=== PATIENT | female | born 1945 | race Caucasian/White ===

== ENCOUNTER 2020-03-22 12:46 | Outpatient (CLI) | payer MEDICARE, SELFPAY | END 2020-03-22 12:47 | disposition home or self-care (01) | LOC: ANHAUDIO 12:50 | DX: H93.13 Tinnitus, bilateral (principal) | CPT/HCPCS: 92557; 92567 ==

== ENCOUNTER 2020-06-27 13:45 | Emergency (ER) | payer MEDICARE, SELFPAY ==
--- NOTE | ~2020-06-27 | CT_ITS ---
EXAMINATION: CT cervical spine wo [facility] EXAM DATE: 06/27/2020 15:04 INDICATION: Radiating cervical pain. TECHNIQUE: Spiral CT of the cervical spine was performed without contrast. Axial images were reviewe d. Coronal and sagittal reformatted images were also reviewed. The dose-length product (DLP) for thi s examination was 354.69 mGy-cm. The exposure was tailored according to patient size (auto mA exposu re control), and iterative reconstruction (ASIR) was used as additional dose reduction technique. ere is no prior study for comparison. FINDINGS: There is moderate loss of the C6-7 disc height, mild to moderate at C4-5 and C7-T1. There i s 2 mm anterolisthesis C7 on T1 and T1 on T2. There are no acute fractures identified. The odontoid p rocess is intact. The lateral masses of C1 line up with C2. Prevertebral soft tissue and pre-dens sp cathleen are within normal limits. Paraspinal soft tissue is unremarkable. Goiter. Level by level evaluation: C2-C3: Disc does not extend beyond the endplate margin. Uncovertebral joint arthropathy: Mild bilateral. Facet joint arthropathy: Moderate left, mild right. Neural foraminal stenosis: Mild left. Central canal stenosis: No stenosis. C3-C4: Disc does not extend beyond the endplate margin. Uncovertebral joint arthropathy: Mild bilateral. Facet joint arthropathy: Severe right, mild left. Neural foraminal stenosis: Moderate to severe right, mild to moderate left. Central canal stenosis: No stenosis. C4-C5: There is a mild diffuse disc bulge. Uncovertebral joint arthropathy: Mild to moderate left, mild right. Facet joint arthropathy: Severe left, moderate right. Neural foraminal stenosis: Moderate bilateral. Central canal stenosis: Mild. C5-C6: There is a mild diffuse disc bulge. Uncovertebral joint arthropathy: Mild to moderate bilateral. Facet joint arthropathy: Severe right, mild to moderate left. Neural foraminal stenosis: Moderate to severe right, moderate left. Central canal stenosis: Mild. C6-C7: There is a mild diffuse disc bulge. Uncovertebral joint arthropathy: Mild to moderate bilateral. Facet joint arthropathy: Moderate left, mild to moderate right. Neural foraminal stenosis: Moderate to severe left. Central canal stenosis: Mild. C7-T1: Disc does not extend beyond the endplate margin. Uncovertebral joint arthropathy: Mild bilateral. Facet joint arthropathy: Moderate bilateral. Neural foraminal stenosis: Moderate left, mild to moderate right. Central canal stenosis: No stenosis. IMPRESSION: 1. Some advanced cervical arthropathy causing significant neural foraminal stenosis. 2. No acute findings. Reviewed, dictated and finalized at location B. IMPRESSION: 1. Some advanced cervical arthropathy causing significant neural foraminal wandy nosis. 2. No acute findings.
[2020-06-27 14:15] VITALS: BP 146/78; PULSE 107; RESP 18; TEMP 36.9; O2SAT 98
--- NOTE | 2020-06-27 15:52 | ED.NECK ---
HPI - Neck Pain/Injury General Chief Complaint: Neck Pain/Injury <Jaki Hutchinson PA-C - Last Filed: 06/27/20 18:04> Stated Complaint: shooting pain in my head and neck <Jaki Hutchinson PA-C - Last Filed: 06/27/20 18:04> Time Seen by Provider: 06/27/20 14:28 <LEATHA Johnson Last Filed: 06/27/20 18:04> Source: patient <Jaki Hutchinson PA-C - Last Filed: 06/27/20 18:04> Mode of arrival: ambulatory <LEATHA Johnson Last Filed: 06/27/20 18:04> Limitations: no limitations <Jaki Hutchinson PA-C - Last Filed: 06/27/20 18:04> History of Present Illness HPI Narrative: Patient presents with chief complaint of worsening cervical discomfort that began last and worsening after doing yard work. Patient states that she was seen at the urgent care on 06-23-2020 in had x-ray performed. She reports that she was prescribed tramadol in cyclobenzaprine which have not remitted her symptoms. Patient states that she is having trouble getting in with her primary care due to COVID. She reports she has radiation from her cervical spine both up and down. 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 Patient denies known direct impact to her neck. Patient states that she also has seen a chiropractor without remittance in her symptoms. Patient denies loss of range of motion in her lower extremities or other back pains. Patient denies any other complaints or concerns. Patient denies fever, chills, meningitis-like neck discomfort, headache or other accompanying symptoms. <Jaki Hutchinson PA-C - Last Filed: 06/27/20 18:04> Related Data Allergies/Adverse Reactions: Allergies Allergy/AdvReac Type Severity Reaction Status Date / Time Sulfa (Sulfonamide Allergy Rash Verified 06/27/20 14:20 Antibiotics) <Jaki Hutchinson PA-C - Last Filed: 06/27/20 18:04> Review of Systems Review of Systems: Narrative: CONSTITUTIONAL: Denies fever, chills, or sweats. EYES: Denies visual changes, redness, or discharge. ENT: Denies rhinorrhea, congestion, sore throat, or otalgia. CARDIOVASCULAR: Denies chest pain, palpitations, or edema. RESPIRATORY: Denies cough or dyspnea. GASTROINTESTINAL: Denies abdominal pain, nausea, vomiting, or diarrhea. GENITOURINARY: Denies dysuria or hematuria. SKIN: Denies rash or itching. MUSCULOSKELETAL: Reports neck pain denies back pain, myalgia, or joint pain NEUROLOGIC: Denies headache, numbness, dizziness, or weakness. PSYCHIATRIC: Denies anxiety or depression. <Jaki Hutchinson PA-C - Last Filed: 06/27/20 18:04> [facility] Social History Social History: Social History Gender identity (if verbalized by the patient): Female <Jaki Hutchinson PA-C - Last Filed: 06/27/20 18:04> Exam Narrative: Exam Narrative: GENERAL: Well-appearing, well-nourished. HEAD: Normocephalic, atraumatic. EYES: PERRLA and EOMI. ENT: Nares clear, no rhinorrhea or epistaxis. Mucous membranes moist. Oropharynx without tonsillar hypertrophy exudate or other lesions. Bilateral TMs pearly du nonbulging NECK: Supple. No adenopathy or masses palpated. Diffuse pain with palpation of cervical spine. Pain with all ROM especially rotation. No meningismus rigidity. CHEST: Clear to auscultation. No respiratory distress. No wheezes rales or rhonchi HEART: Regular rate and rhythm. Normal peripheral pulses. EXTREMITIES: No acute changes in ROM. No edema. Cell Lead strength and ROM intact and strong to upper an lower. SKIN: Warm, dry, no rash. NEURO: No focal deficits. Alert and oriented x3. PSYCH: Normal mood and affect. <Jaki Hutchinson PA-C - Last Filed: 06/27/20 18:04> Course Vital Signs Vital signs: Vital Signs Temperature 98.5 F 06/27/20 14:15 Pulse Rate 107 H 06/27/20 14:15 Respiratory Rate 18 06/27/20 14:15 Blood Pressure 146/78 H 06/27/20 14:15 Pulse Oximetry 98 06/27/20 14:15 Temperature 98.5 F 06/27/20 14:15 Pulse Rate
[2020-06-27] MEDS: KETOROLAC (*BKC) 60 MG/2 ML VIAL 30 MG IM (15:55)
== END 2020-06-27 16:13 | disposition home or self-care (01) ==
PROVIDERS: Emergency Provider General Practice; PCP Family Medicine
DX: M48.02 Spinal stenosis, cervical region (principal)
CPT/HCPCS: 72125; 96372; 99284; J1885

== ENCOUNTER 2020-10-06 12:18 | Emergency (ER) | payer MEDICARE, SELFPAY ==
[2020-10-06 12:27] VITALS: BP 150/89; PULSE 122; RESP 17; TEMP 36.6; O2SAT 98
--- NOTE | 2020-10-06 12:42 | ED.LOWEXIN ---
HPI - Extremity Injury (Lower) General Chief Complaint: Extremity Injury, Lower Stated Complaint: right leg injury Time Seen by Provider: 10/06/20 12:32 Source: patient Mode of arrival: ambulatory Limitations: no limitations History of Present Illness HPI Narrative: A 75-year-old lady comes into the emergency department with complaints of a right lower extremity injury. She notes that she was at home, set a trash can lid down on the floor, went to go turn around and did not see it. She states she excellently stepped on the trash can lid which slid out in front of her taking her right leg with it. She states she quickly fell to the floor. Patient was able to ambulate in hearing but states that she does not think she broke anything. She notes all of her pain is in the right hamstring muscles. She denies any numbness or tingling in the distal extremities. Related Data Allergies Allergy/AdvReac Type Severity Reaction Status Date / Time Sulfa (Sulfonamide Allergy Rash Verified 10/06/20 12:34 Antibiotics) Review of Systems Review of Systems: Narrative: CONSTITUTIONAL: Denies fever, chills, or sweats. EYES: Denies visual changes, redness, or discharge. ENT: Denies rhinorrhea, congestion, sore throat, or otalgia. CARDIOVASCULAR: Denies chest pain, palpitations, or edema. RESPIRATORY: Denies cough or dyspnea. GASTROINTESTINAL: Denies abdominal pain, nausea, vomiting, or diarrhea. GENITOURINARY: Denies dysuria or hematuria. SKIN: Denies rash or itching. MUSCULOSKELETAL: Denies back pain, joint pain, or myalgia. Endorses right hamstring pain and tenderness with movement NEUROLOGIC: Denies headache, numbness, dizziness, or weakness. PSYCHIATRIC: Denies anxiety or depression. [facility] Social History Social History Gender identity (if verbalized by the patient): Female Exam Narrative: Exam Narrative: GENERAL: Well-appearing, well-nourished, and in no acute distress. HEAD: Normocephalic, atraumatic. EYES: PERRLA and EOMI. ENT: Nares clear, no rhinorrhea or epistaxis. Mucous membranes moist. Oropharynx without tonsillar hypertrophy exudate or other lesions. Bilateral TMs pearly du nonbulging NECK: Supple. No adenopathy or masses. No carotid bruits or JVD CHEST: Clear to auscultation. No respiratory distress. No wheezes rales or rhonchi HEART: Regular rate and rhythm. No murmur heard. Normal peripheral pulses. ABDOMEN: Soft, nontender, nondistended, normal active bowel sounds. EXTREMITIES: Normal range of motion. No edema. +2 dorsalis pedis pulses bilaterally, +2 posterior tibial pulse on the right, +1 posterior tibial pulse on the left. Tenderness to palpation along the right hamstring muscles. SKIN: Warm, dry, no rash. NEURO: No focal deficits. Alert and oriented x3. PSYCH: Normal mood and affect. Course Course Emergency Course: Patient to receive symptomatic medications. At this time I do not believe that she broke any bones and x-ray imaging is not warranted at this time. Explained my rationale to the patient and her significant other. They both agree. We will plan for discharge with symptomatic medications. I did discuss treatment plans at length with them including alternating heat and ice and perhaps using a topical agent like icy hot. Vital Signs Vital signs: Vital Signs Temperature 36.6 C 10/06/20 12:27 Pulse Rate 122 H 10/06/20 12:27 Respiratory Rate 17 10/06/20 12:27 Blood Pressure 150/89 H 10/06/20 12:27 Pulse Oximetry 98 10/06/20 12:27 Temperature 36.6 C 10/06/20 12:27 Pulse Rate 122 H 10/06/20 12:27 Respiratory Rate 17 10/06/20 12:27 Blood Pressure 150/89 H 10/06/20 12:27 Pulse Oximetry 98 10/06/20 12:27 MDM - Extremity Injury (Lower) MDM Narrative Medical decision making narrative: In brief this is a 75-year-old female who came into the emergency department after an injury to her right lower extremity. Based on history
[2020-10-06] MEDS: KETOROLAC (*BKC) 60 MG/2 ML VIAL IM (13:24)
[2020-10-06] MEDS: HYDROcodone/acetaminophen (*CRX) 5-325 MG TABLET 1 TAB PO (13:24)
== END 2020-10-06 13:39 | disposition home or self-care (01) ==
PROVIDERS: Emergency Provider Emergency Medicine; PCP Family Medicine
DX: S76.311A Strain of muscle, fascia and tendon of the posterior muscle group at thigh level, right thigh, initial encounter (principal); W18.09XA Striking against other object with subsequent fall, initial encounter
CPT/HCPCS: 96372; 99283; A9270; J1885

== ENCOUNTER 2021-04-03 14:02 | Outpatient (CLI) | payer MEDICARE, SELFPAY ==
--- NOTE | ~2021-04-03 | XR_ITS ---
XR lumbar spine 2-3V DATE: 04/03/2021 14:43 INDICATION: Low back pain and left hip pain for 20 years TECHNIQUE: AP, lateral, coned lateral lumbosacral views COMPARISON: lumbar spine FINDINGS: There is grade 1 anterolisthesis at L4-5 due to degenerative change at the apophyseal joint s. Degenerative changes apophyseal joints is evident particular at L4-5 and L5-S1. Moderate degenerative disc disease at L4-5 and mild degenerative disc disease at the remaining lumbar interspaces. No fracture or bone destruction. The included lower thoracic and lumbar pedicles are intact. The sacr oiliac joints appear normal. IMPRESSION: Grade 1 anterolisthesis at L4-5 due to degenerative change at the apophyseal joints Mildly prominent degenerative disc disease at L4-5, increased since 10/15/2015 Mild degenerative disease at the remaining lumbar interspaces Reviewed, dictated and finalized at location B. IMPRESSION: Grade 1 anterolisthesis at L4-5 due to degenerative change at the a pophyseal joints Mildly prominent degenerative disc disease at L4-5, increased since 10/15/2015 Mild degenerative disease at the remaining lumbar interspaces
--- NOTE | ~2021-04-03 | XR_ITS ---
EXAMINATION: XR hip LT min 2V DATE: 04/03/2021 14:43 INDICATION: Left hip pain. TECHNIQUE: 2 views of left hip were obtained. COMPARISON: None. FINDINGS: Bone alignment is normal. No fracture. There is mild left hip osteoarthritis. IMPRESSION: 1. Mild left hip osteoarthritis. 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
[2021-04-03 14:21] LABS: Basophils Percent Auto 0.9 % (0.0-1.0); Eosinophils Percent Auto 2.7 % (1.0-6.0); Hemoglobin 14.6 g/dL (11.7-13.8); Immature Granulocyte Absolute 0.03 K/mm3 (0.00-0.00); Immature Granulocyte Percent A 0.3 % (0.0-0.0); Lymphocytes Percent Auto 19.1 % (18.0-42.0); Mean Corpuscular Hemoglobin 29.1 pg (27.0-31.0); Mean Corpuscular Volume 85.8 fL (78.0-102.0); Mean Platelet Volume 9.6 fl (9.2-11.8); Monocytes Absolute Auto 0.74 K/mm3 (0.10-0.90); Monocytes Percent Auto 6.7 % (2.0-11.0); Neutrophils Absolute Auto 7.7 K/mm3 (1.7-7.2); Neutrophils Percent Auto 70.3 % (50.0-70.0); Platelet Count Result 477 K/mm3 (150-420); Red Blood Count 5.01 M/mm3 (4.20-5.40); Red Cell Distribution Width 12.3 % (11.6-14.4)
[2021-04-03 14:22] LABS: Add Urine Microscopic? YES; Appearance Urine Clear (Clear); Bilirubin Urine Negative (Negative); Blood Urine Negative (Negative); Color Urine Light Yellow (Yellow); Glucose Urine UA Negative (Negative); Ketones Urine Negative (Negative); Leukocyte Esterase Ur 2+ (Negative); Nitrate Urine Negative (Negative); Protein Urine Negative (Negative); Urobilinogen Urine 0.2 mg/dL (0.2-1.0)
[2021-04-03 14:26] LABS: Bacteria Urine 1+ /hpf; RBC Urine None seen /hpf (0-2); Squamous Epithelial Cell Urine Few /hpf (Few)
[2021-04-03 14:56] LABS: Creatinine Urine 162.52 mg/dL (40-278); MALB Creatinine Ratio 7.9 mg/g (0-30); Microalbumin Urine Random < 13.0 mg/L
[2021-04-03 14:58] LABS: Hemoglobin A1C 6.4 % (<5.7)
[2021-04-03 15:20] LABS: Alanine Aminotransferase 26 U/L (14-59); Albumin Level 4.3 g/dL (3.4-5.0); Alkaline Phosphatase 80 U/L (46-116); Anion Gap 12 mmol/L (8-16); Aspartate Amino Transferase 18 U/L (15-37); Bilirubin,Total 0.3 mg/dL (0.00-1.00); Blood Urea Nitrogen 26 mg/dL (7-18); Calcium 10.8 mg/dL (8.5-10.1); Carbon Dioxide 28 mmol/L (21-32); Chloride 98 mmol/L (98-108); Cholesterol 176 mg/dL (0-200); Estimated Glomerular Filt Rate 33; Glucose 103 mg/dL (70-99); HDL Direct 53 mg/dL (40-60); LDL Cholesterol Calculated 104 mg/dL (<130); Osmolality Calculated 290 mOsm/kg (285-295); Potassium 4.6 mmol/L (3.5-5.1); Sodium 138 mmol/L (136-145); Thyroid Stimulating Hormone 2.47 uIU/mL (0.36-3.74); Total Protein 7.3 g/dL (6.4-8.2); Triglycerides 96 mg/dL (0-150)
== END 2021-04-03 14:03 | disposition home or self-care (01) ==
LOC: CHSLAB 14:04
PROVIDERS: PCP Internal Medicine; Visit Provider Internal Medicine
DX: E11.9 Type 2 diabetes mellitus without complications (principal); I10 Essential (primary) hypertension; M54.17 Radiculopathy, lumbosacral region
CPT/HCPCS: 36415; 72100; 73502; 80053; 80061; 81001; 82043; 83036; 84443; 85025

== ENCOUNTER 2021-04-10 08:08 | Outpatient (CLI) | payer MEDICARE, SELFPAY ==
--- NOTE | ~2021-04-10 | MR_ITS ---
EXAMINATION: MR lumbar spine wo [facility] EXAM DATE: 04/10/2021 10:04 INDICATION: Low back pain into left leg with numbness in the foot. TECHNIQUE: Multi-sequential, multiplanar MR images of the lumbar spine were obtained without contrast . Sagittal T1, T2, T2 fat saturation images. Axial T2 weighted images. Comparison is made to prior examination from 04/23/2019. FINDINGS: There is 4 mm anterolisthesis L4 on L5, 2 mm anterolisthesis T12 on L1. Mild to moderate di sc disease L4-5, mild at the other lumbar levels. The conus medullaris terminates at the T12-L1 level and has normal signal intensity and morphology. There are no suspicious marrow signal abnormalities . Paraspinal soft tissue is unremarkable. Level by level evaluation: T12-L1: There is a mild diffuse disc bulge. Facet arthropathy: Mild to moderate. Neural foraminal stenosis: No stenosis. Central canal stenosis: No stenosis. L1-L2: There is a mild diffuse disc bulge. Facet arthropathy: Mild to moderate. Neural foraminal stenosis: No stenosis. Central canal stenosis: No stenosis. L2-L3: There is a mild diffuse disc bulge. Facet arthropathy: Mild to moderate. Neural foraminal stenosis: Mild bilateral. Central canal stenosis: Mild. L3-L4: There is a mild to moderate diffuse disc bulge. Facet arthropathy: Moderate. Neural foraminal stenosis: Mild to moderate left, mild right. Central canal stenosis: Mild to moderate. L4-L5: There is a moderate diffuse disc bulge. Facet arthropathy: Moderate to severe . Ligamentum flavum enlargement. Neural foraminal stenosis: Mild to moderate bilateral. Central canal stenosis: Moderate. L5-S1: There is a moderate diffuse disc bulge. Facet arthropathy: Moderate. Neural foraminal stenosis: Mild bilateral. Central canal stenosis: Moderate, less than level above. Compared to 2019 exam, mild progression in the disc disease. Amount of stenosis does not appear signi ficantly changed. IMPRESSION: 1. L4-5 grade 1 anterolisthesis, moderate central canal stenosis. 2. Less spondylosis other levels. 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
[2021-04-10 09:15] LABS: Phosphorus 3.8 mg/dL (2.6-4.7)
[2021-04-13 04:55] LABS: Ionized Calcium 5.3 mg/dL (4.8-5.6)
[2021-04-13 11:31] LABS: Parathyroid Intact 31 pg/mL (14-64)
[2021-04-14 05:19] LABS: Albumin 4.3 g/dL (3.8-4.8); Alpha 1 Globulin 0.3 g/dL (0.2-0.3); Alpha 2 Globulin 0.9 g/dL (0.5-0.9); Beta 1 Globulin 0.5 g/dL (0.4-0.6); Protein, Total 7.3 g/dL (6.1-8.1)
== END 2021-04-10 08:09 | disposition home or self-care (01) ==
LOC: CHSIMG 08:10
PROVIDERS: PCP Internal Medicine; Visit Provider Internal Medicine
DX: M54.5 Low back pain (principal); E83.51 Hypocalcemia
CPT/HCPCS: 36415; 72148; 82330; 83970; 84100; 84155; 84165; 86334

== ENCOUNTER 2021-06-25 11:20 | Outpatient (CLI) | payer MEDICARE, SELFPAY ==
[2021-06-25 12:47] LABS: Alanine Aminotransferase 20 U/L (4-35); Albumin Level 4.9 g/dL (3.5-5.1); Alkaline Phosphatase 79 U/L (38-126); Anion Gap 9 mmol/L (8-16); Aspartate Amino Transferase 42 U/L (14-36); Bilirubin,Total 0.3 mg/dL (0.2-1.3); Blood Urea Nitrogen 31 mg/dL (7-17); Calcium 10.1 mg/dL (8.4-10.2); Carbon Dioxide 28 mmol/L (22-30); Chloride 96 mmol/L (98-107); Estimated Glomerular Filt Rate 40; Glucose 121 mg/dL (65-110); Potassium 4.3 mmol/L (3.4-5.0); Sodium 133 mmol/L (137-145)
[2021-06-25 18:44] LABS: Hemoglobin A1C 6.5 % (<5.7)
== END 2021-06-25 11:21 | disposition home or self-care (01) ==
PROVIDERS: PCP Internal Medicine; Visit Provider Internal Medicine
DX: E11.9 Type 2 diabetes mellitus without complications (principal); I10 Essential (primary) hypertension
CPT/HCPCS: 36415; 80053; 83036

== ENCOUNTER 2021-09-09 11:26 | Outpatient (CLI) | payer MEDICARE, SELFPAY ==
--- NOTE | ~2021-09-09 | XR_ITS ---
EXAMINATION: XR abdomen obstructive series DATE: 09/09/2021 11:49 INDICATION: Diarrhea. Abdominal pain. TECHNIQUE: Frontal supine and upright views of the abdomen were obtained. COMPARISON: None. FINDINGS: Small to moderate amount of gas and fluid scattered throughout the normal caliber colon consistent wi th given history of diarrhea. No dilated gas-filled loops of bowel to suggest obstruction. No free in traperitoneal gas. 2 cm rim calcified gallstone in the right upper quadrant. Postoperative changes wi th suture line in the right lower quadrant. Small calcified nodule at the dome of the liver consisten t with old granulomatous disease. Paracardial fat pad at the lateral left lung base. Bilateral breast implants. IMPRESSION: 1. No free intraperitoneal gas or dilated gas-filled loops of bowel to suggest obstruction. 2. Cholelithiasis. Reviewed, dictated and finalized at [facility]. 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
[2021-09-09 11:40] LABS: Basophils Absolute Auto 0.13 K/mm3 (0.00-0.10); Eosinophils Absolute Auto 0.54 K/mm3 (0.02-0.50); Eosinophils Percent Auto 4.3 % (1.0-6.0); Hematocrit 45.1 % (35.0-42.0); Hemoglobin 14.7 g/dL (11.7-13.8); Immature Granulocyte Absolute 0.08 K/mm3 (0.00-0.00); Immature Granulocyte Percent A 0.6 % (0.0-0.0); Lymphocytes Absolute Auto 1.65 K/mm3 (1.10-4.50); Mean Corpuscular HGB Conc 32.6 g/dL (32.0-36.0); Mean Corpuscular Hemoglobin 29.3 pg (27.0-31.0); Mean Platelet Volume 9.6 fl (9.2-11.8); Monocytes Absolute Auto 1.08 K/mm3 (0.10-0.90); Monocytes Percent Auto 8.5 % (2.0-11.0); Neutrophils Absolute Auto 9.2 K/mm3 (1.7-7.2); Neutrophils Percent Auto 72.6 % (50.0-70.0); Platelet Count Result 420 K/mm3 (150-420); Red Blood Count 5.01 M/mm3 (4.20-5.40); Red Cell Distribution Width 13.2 % (11.6-14.4); White Blood Count 12.7 K/mm3 (4.8-10.8)
[2021-09-09 12:47] LABS: Alanine Aminotransferase 53 U/L (14-59); Albumin Level 3.9 g/dL (3.4-5.0); Alkaline Phosphatase 90 U/L (46-116); Amylase 47 U/L (25-115); Anion Gap 10 mmol/L (8-16); Aspartate Amino Transferase 34 U/L (15-37); Bilirubin,Total 0.5 mg/dL (0.00-1.00); Blood Urea Nitrogen 18 mg/dL (7-18); Calcium 10.1 mg/dL (8.5-10.1); Carbon Dioxide 29 mmol/L (21-32); Chloride 99 mmol/L (98-108); Estimated Glomerular Filt Rate 34; Glucose 119 mg/dL (70-99); Lipase 104 U/L (73-393); Osmolality Calculated 288 mOsm/kg (285-295); Potassium 4.3 mmol/L (3.5-5.1); Sodium 138 mmol/L (136-145); Total Protein 7.2 g/dL (6.4-8.2)
== END 2021-09-09 11:27 | disposition home or self-care (01) ==
LOC: CHSLAB 11:28
PROVIDERS: PCP Internal Medicine; Visit Provider Internal Medicine
DX: R19.7 Diarrhea, unspecified (principal); R10.9 Unspecified abdominal pain
CPT/HCPCS: 36415; 74019; 80053; 82150; 83690; 85025

== ENCOUNTER → 2021-10-10 11:07 | Outpatient (CLI) | payer MEDICARE, SELFPAY ==
--- NOTE | ~2021-10-10 | CT_ITS ---
EXAMINATION: CT abdomen pelvis w con DATE: 10/10/2021 11:31 INDICATION: Diarrhea TECHNIQUE: Computed tomography (CT) of the abdomen and pelvis was performed with 100 cc Omnipaque 350 intravenous contrast. Automated exposure control and iterative reconstruction technique were employe d. Exam dose: 729.56 mGy-cm total exam DLP. COMPARISON: 09/09/2021 obstructive series. FINDINGS: The lung bases are clear of infiltrate or consolidation. Normal heart size. No pericardial or pleural effusion. Bilateral breast implants, the right implant apparently for postmastectomy breas t reconstruction. Concentrically calcified 1.9 cm gallstone. No gallbladder wall thickening or pericholecystic fluid or fat stranding. No bile duct or pancreatic duct dilatation. No hepatic, splenic, pancreatic or adrenal space-occupying mass lesion. Scattered bilateral renal cysts, largest measuring 9 mm in the lower pole of the right kidney. No evidence of appendicitis. Diverticulosis of the left and and to lesser extent right colon; no CT e vidence of diverticulitis. No bowel obstruction, bowel wall thickening, pneumatosis or intraperitonea l free air. There is atherosclerotic calcification but no aneurysm of the abdominal aorta. No intraperitoneal or retroperitoneal or pelvic mass lesion or adenopathy or ascites. The urinary bladder is unremarkable. Status post hysterectomy. Small fat-containing umbilical hernia. Prominent degenerative disc disease at T7-8 and T9-10 are moderately prominent degenerative disc dise ase at T8-9. There is degenerative change of the lumbar apophyseal joints with associated grade 1 anterolisthesis at L4-5. No suspicious osteolytic or osteoblastic lesions are noted. IMPRESSION: Cholelithiasis Bilateral renal cysts Diverticulosis of the colon; no CT evidence of diverticulitis No evidence of appendicitis Status post right mastectomy and implant reconstruction; left breast augmentation mammoplasty Reviewed, dictated and finalized at [facility]. 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
[2021-10-10 11:22] LABS: Estimated Glomerular Filt Rate 43
== END ==
PROVIDERS: Visit Provider Surgery
DX: R19.7 Diarrhea, unspecified (principal); K80.20 Calculus of gallbladder without cholecystitis without obstruction; K76.89 Other specified diseases of liver; Z90.11 Acquired absence of right breast and nipple
CPT/HCPCS: 74177; Q9967

== ENCOUNTER 2021-10-31 00:12 | Day surgery (SDC) | payer MEDICARE, SELFPAY ==
[2021-10-21 08:31] VITALS: BMI 28.2
[2021-10-31 06:55] VITALS: BP 144/83; PULSE 91; RESP 20; TEMP 36.6; O2SAT 97; BMI 28.1
[2021-10-31] MEDS: LACTATED RINGERS 1,000 ML 150 ML IV CONT (07:06)
--- NOTE | 2021-10-31 07:46 | P.PNAN_ITS ---
Anes - Initial Pre Proc Eval Procedure: Operation Date: 10/31/21 08:00 Proposed Procedures p Colonoscopy - Gildardo Mcdowell DO Date/Time: 10/31/21 07:46 Surgeon: Gildardo Mcdowell DO Pre Op Diagnosis: diarrhea Patient Data Age: 76 Gender: F Height: 1.65 m Weight: 76.7 kg Last Vital Signs Temp 97.8 F 10/31/21 06:55 Pulse 91 10/31/21 06:55 Resp 20 10/31/21 06:55 BP 144/83 H 10/31/21 06:55 Pulse Ox 97 10/31/21 06:55 Allergies Allergy/AdvReac Type Severity Reaction Status Date / Time Sulfa (Sulfonamide Allergy Intermediate Rash Verified 10/31/21 06:54 Antibiotics) Home Medications Medication Instructions Recorded Confirmed Type amlodipine 10 mg tablet 10 mg PO DAILY 10/02/21 10/21/21 History multivitamin 1 tablet PO DAILY 10/02/21 10/21/21 History omega 4-uvf-scf-fish oil 1,000 mg 1 cap PO DAILY 10/02/21 10/21/21 History (120 mg-180 mg) capsule Patient hx anesthesia problems: none Family hx anesthesia problems: none Results Review: All pre-operative results and documents have been reviewed as part of the pre-operative evaluation. COUNT INCLUDES THE [facility] Past Medical History Medical History Hypertension Surgical History Surgical History H/O breast reconstruction H/O: hysterectomy History of mastectomy right breast Family History Family History Mother Cerebrovascular accident Sibling Breast cancer Other Diabetes mellitus Social History Social History Smoking status: Never smoker Tobacco type: cigarettes Alcohol intake: never Substance use: never Substance use type: does not use Living arrangements: with family Gender identity (if verbalized by the patient): Female Spiritual care concerns: No Anes - Eval Final PreProcedure Day of Procedure 10/31/21 07:46 Patient weight: overweight Heart: regular rate and rhythm Lungs: clear to auscultation Airway: Mallampati scale class II Neurological: alert and oriented Last oral intake: >/= 8 hours ASA classification: II Emergent: no Anesthetic plan: proceed Anesthesia type and monitoring: general GIVS and standard monitoring Results Review: All pre-operative results and documents have been reviewed as part of the pre-operative evaluation. Informed Consent: The patient's anesthetic plan and its attendant risks and benefits were discussed with the patient/family/POA. Questions were solicited and answers provided to the satisfaction of the patient/family/POA.
--- NOTE | 2021-10-31 07:58 | WPDHPUPDATE1 ---
History and Physical Update Update Date/Time: 10/31/21 07:58 History and Physical has been reviewed, including an updated exam of the patient. There are NO changes in the patient's condition. Risks, benefits, and alternatives have been discussed and questions answered. Patient agrees to proceed with procedure.
[2021-10-31 08:29] VITALS: BP 106/61; PULSE 62; RESP 12; O2SAT 92
[2021-10-31 08:39] VITALS: BP 121/95; PULSE 83; RESP 18; O2SAT 92
[2021-10-31 08:51] VITALS: BP 136/95; PULSE 60; RESP 17; O2SAT 93
== END 2021-10-31 09:15 | disposition home or self-care (01) ==
PROVIDERS: PCP Internal Medicine; Visit Provider Surgery
PROC: 0DJD8ZZ Inspection of Lower Intestinal Tract, Via Natural or Artificial Opening Endoscopic (ICD-10-PCS; CPT 45378; principal; 2021-10-31 08:00)
DX: Z12.11 Encounter for screening for malignant neoplasm of colon (principal); R19.7 Diarrhea, unspecified; K57.30 Diverticulosis of large intestine without perforation or abscess without bleeding; K63.89 Other specified diseases of intestine; Z53.8 Procedure and treatment not carried out for other reasons; I10 Essential (primary) hypertension
CPT/HCPCS: G0121; J2704; J7120

== ENCOUNTER 2022-04-18 14:26 | Outpatient (CLI) | payer MEDICARE, SELFPAY ==
--- NOTE | ~2022-04-18 | US_ITS ---
EXAMINATION: US venous doppler [facility] DATE: 04/18/2022 16:12 INDICATION: Bilateral lower limb swelling TECHNIQUE: Mayer scale images without and with compression and Doppler images of the bilateral lower e xtremity veins were obtained. COMPARISON: None FINDINGS: The right common femoral vein, profunda femoral vein, femoral vein, popliteal vein, peroneal trunk, p osterior tibial veins, and greater saphenous vein are patent. The left common femoral vein, profunda femoral vein, femoral vein, popliteal vein, peroneal trunk, po sterior tibial veins, and greater saphenous vein are patent. IMPRESSION: 1. Patent bilateral lower extremity veins. No evidence of deep venous thrombosis. Reviewed, dictated and finalized at location L. IMPRESSION: 1. Patent bilateral lower extremity veins. No evidence of deep venous thrombosi s.
[2022-04-18 14:44] LABS: Basophils Absolute Auto 0.11 K/mm3 (0.00-0.10); Basophils Percent Auto 1.2 % (0.0-1.0); Eosinophils Absolute Auto 0.38 K/mm3 (0.02-0.50); Eosinophils Percent Auto 4.2 % (1.0-6.0); Hematocrit 43.5 % (35.0-42.0); Hemoglobin 14.3 g/dL (11.7-13.8); Immature Granulocyte Absolute 0.02 K/mm3 (0.00-0.00); Immature Granulocyte Percent A 0.2 % (0.0-0.0); Lymphocytes Absolute Auto 1.95 K/mm3 (1.10-4.50); Lymphocytes Percent Auto 21.6 % (18.0-42.0); Mean Corpuscular HGB Conc 32.9 g/dL (32.0-36.0); Mean Corpuscular Hemoglobin 28.8 pg (27.0-31.0); Mean Corpuscular Volume 87.5 fL (78.0-102.0); Monocytes Absolute Auto 0.66 K/mm3 (0.10-0.90); Monocytes Percent Auto 7.3 % (2.0-11.0); Neutrophils Absolute Auto 5.9 K/mm3 (1.7-7.2); Neutrophils Percent Auto 65.5 % (50.0-70.0); Platelet Count Result 378 K/mm3 (150-420); Red Blood Count 4.97 M/mm3 (4.20-5.40); Red Cell Distribution Width 13.3 % (11.6-14.4)
[2022-04-18 14:47] LABS: Add Urine Microscopic? YES; Appearance Urine Clear (Clear); Bilirubin Urine Negative (Negative); Blood Urine Negative (Negative); Color Urine Light Yellow (Yellow); Glucose Urine UA Negative (Negative); Ketones Urine Negative (Negative); Leukocyte Esterase Ur 1+ (Negative); Nitrate Urine Negative (Negative); Protein Urine Negative (Negative); Specific Grav Ur <= 1.005 (1.010-1.020); Urobilinogen Urine 0.2 mg/dL (0.2-1.0); pH Urine 5.5 (5.0-8.0)
[2022-04-18 14:52] LABS: RBC Urine 0-2 /hpf (0-2); Squamous Epithelial Cell Urine Few /hpf (Few)
[2022-04-18 14:53] LABS: Bacteria Urine Trace /hpf
[2022-04-18 15:02] LABS: D Dimer 0.91 mg/L (0.19-0.50)
[2022-04-18 15:11] LABS: Alanine Aminotransferase 26 U/L (14-59); Albumin Level 4.1 g/dL (3.4-5.0); Alkaline Phosphatase 135 U/L (46-116); Anion Gap 11 mmol/L (8-16); Aspartate Amino Transferase 22 U/L (15-37); Bilirubin,Total 0.4 mg/dL (0.00-1.00); Blood Urea Nitrogen 13 mg/dL (7-18); Calcium 9.5 mg/dL (8.5-10.1); Carbon Dioxide 28 mmol/L (21-32); Chloride 103 mmol/L (98-108); Estimated Glomerular Filt Rate 41; Free T3 2.59 pg/mL (2.18-3.98); Glucose 138 mg/dL (70-99); NT Pro B Type Natriuretic Pept 48 pg/mL (0-450); Osmolality Calculated 296 mOsm/kg (285-295); Potassium 3.5 mmol/L (3.5-5.1); Sodium 142 mmol/L (136-145); Thyroid Stimulating Hormone 2.84 uIU/mL (0.36-3.74)
== END 2022-04-18 14:27 | disposition home or self-care (01) ==
PROVIDERS: PCP Internal Medicine; Visit Provider Internal Medicine
DX: R60.9 Edema, unspecified (principal); R79.1 Abnormal coagulation profile; I10 Essential (primary) hypertension; R06.00 Dyspnea, unspecified
CPT/HCPCS: 36415; 80053; 81001; 83880; 84439; 84443; 84481; 85025; 85380; 93970

== ENCOUNTER 2022-05-05 08:21 | Outpatient (CLI) | payer MEDICARE, SELFPAY ==
[2022-05-05 09:01] LABS: Alanine Aminotransferase 32 U/L (14-59); Alkaline Phosphatase 131 U/L (46-116); Anion Gap 9 mmol/L (8-16); Aspartate Amino Transferase 16 U/L (15-37); Bilirubin,Total 0.6 mg/dL (0.00-1.00); Blood Urea Nitrogen 28 mg/dL (7-18); Calcium 9.4 mg/dL (8.5-10.1); Carbon Dioxide 31 mmol/L (21-32); Chloride 100 mmol/L (98-108); Estimated Glomerular Filt Rate 37; Glucose 176 mg/dL (70-99); Osmolality Calculated 299 mOsm/kg (285-295); Potassium 3.3 mmol/L (3.5-5.1); Sodium 140 mmol/L (136-145); Total Protein 7.6 g/dL (6.4-8.2)
== END 2022-05-05 08:22 | disposition home or self-care (01) ==
LOC: CHSLAB 08:24
PROVIDERS: PCP Internal Medicine; Visit Provider Internal Medicine
DX: R60.9 Edema, unspecified (principal)
CPT/HCPCS: 36415; 80053

== ENCOUNTER 2022-06-27 10:51 | Outpatient (CLI) | payer MEDICARE, SELFPAY ==
[2022-06-27 11:29] LABS: Alanine Aminotransferase 28 U/L (6-35); Albumin Level 4.4 g/dL (3.5-5.1); Alkaline Phosphatase 118 U/L (38-126); Anion Gap 12 mmol/L (8-16); Aspartate Amino Transferase 32 U/L (14-36); Bilirubin,Total 0.6 mg/dL (0.2-1.3); Blood Urea Nitrogen 20 mg/dL (7-17); Calcium 9.2 mg/dL (8.4-10.2); Carbon Dioxide 29 mmol/L (22-30); Chloride 99 mmol/L (98-107); Estimated Glomerular Filt Rate 43; Glucose 239 mg/dL (65-110); Magnesium 1.6 mg/dL (1.6-2.3); Potassium 3.7 mmol/L (3.4-5.0); Sodium 140 mmol/L (137-145)
== END 2022-06-27 10:52 | disposition home or self-care (01) ==
LOC: ANHLAB 10:55
PROVIDERS: PCP Internal Medicine; Visit Provider Internal Medicine
DX: E78.6 Lipoprotein deficiency (principal); R60.9 Edema, unspecified
CPT/HCPCS: 36415; 80053; 83735

== ENCOUNTER 2022-10-03 09:52 | Outpatient (CLI) | payer MEDICARE, SELFPAY ==
--- NOTE | ~2022-10-03 | XR_ITS ---
EXAMINATION: XR chest 2V DATE: 10/03/2022 10:43 INDICATION: Acute cough TECHNIQUE: Frontal and lateral views of the chest are obtained COMPARISON: 10/07/2016 FINDINGS: There is subsegmental atelectasis of the left lung extending from the left hilum. The lungs are free of focal airspace opacities. Calcified nodules in the right lung base are consistent with o ld granulomatous disease. No pleural effusion or pneumothorax. The cardiomediastinal silhouette is no rmal. Mid thoracic scoliosis is noted. IMPRESSION: 1. Subsegmental atelectasis of the left lung without acute findings. Consider followup radiographs or chest CT in six weeks if symptoms persist after appropriate therapy or if the patient is at high ris k for malignancy. Reviewed, dictated and finalized at location B. ETRICIAN IMPRESSION: 1. Subsegmental atelectasis of the left lung without acute findings. Consider f ollowup radiographs or chest CT in six weeks if symptoms persist after appropri ate therapy or if the patient is at high risk for malignancy.
[2022-10-03 11:39] LABS: Hematocrit 47.1 % (37.0-47.0); Hemoglobin 15.5 g/dL (12.0-15.0); Mean Corpuscular HGB Conc 32.9 g/dl (32-36); Mean Corpuscular Hemoglobin 28.7 pg (26-34); Mean Corpuscular Volume 87.1 fl (80-100); Mean Platelet Volume 10.7 fl (7.4-10.4); Platelet Count Result 330 k/mm3 (150-375); Red Blood Count 5.41 M/mm3 (4.2-5.4); Red Cell Distribution Width 13.6 % (11.5-14.5); White Blood Count 9.4 K/mm3 (4.5-10.0)
[2022-10-03 11:51] LABS: Alanine Aminotransferase 25 U/L (6-35); Albumin Level 4.4 g/dL (3.5-5.1); Alkaline Phosphatase 114 U/L (38-126); Anion Gap 6 mmol/L (8-16); Aspartate Amino Transferase 27 U/L (14-36); Bilirubin,Total 0.5 mg/dL (0.2-1.3); Blood Urea Nitrogen 16 mg/dL (7-17); CRP 1.6 mg/dL (<1.0); Calcium 9.2 mg/dL (8.4-10.2); Carbon Dioxide 33 mmol/L (22-30); Chloride 95 mmol/L (98-107); Cholesterol 219 mg/dL (0-200); Estimated Glomerular Filt Rate 48; Glucose 323 mg/dL (65-110); HDL Direct 48 mg/dL; Potassium 3.6 mmol/L (3.4-5.0); Sodium 134 mmol/L (137-145); Triglycerides 145 mg/dL (<150)
[2022-10-03 11:58] LABS: NT Pro B Type Natriuretic Pept 38 pg/mL (19.9-100)
[2022-10-03 12:00] LABS: Hemoglobin A1C 9.1 % (<5.7); LDL Cholesterol Direct 133 mg/dL
== END 2022-10-03 09:53 | disposition home or self-care (01) ==
PROVIDERS: PCP Internal Medicine; Visit Provider Internal Medicine
DX: R05.1 Acute cough (principal); E11.9 Type 2 diabetes mellitus without complications; J98.11 Atelectasis; I12.9 Hypertensive chronic kidney disease with stage 1 through stage 4 chronic kidney disease, or unspecified chronic kidney disease; N18.31 Chronic kidney disease, stage 3a
CPT/HCPCS: 36415; 71046; 80053; 80061; 83036; 83880; 85027; 86140

== ENCOUNTER 2022-10-07 11:29 | Emergency (ER) | payer MEDICARE, SELFPAY ==
[2022-10-07] VITALS (23 sets, daily range): BP systolic 129–189; BP diastolic 86–175; PULSE 87–142; RESP 16–31; TEMP 36.4; O2SAT 91–100
--- NOTE | ~2022-10-07 | CT_ITS ---
EXAMINATION: CTA chest PE protocol DATE: 10/07/2022 14:37 INDICATION: Cough. TECHNIQUE: Computed tomography angiography (CTA) of the chest was performed with 100 mL Omnipaque-350 intravenous contrast timed to evaluate the pulmonary arteries. Coronal maximum intensity projection 3D-reconstructions were created by the technologist. Automated exposure control and iterative reconst ruction technique were employed. The dose-length product was 360.49 mGy-cm. COMPARISON: Chest CT 01/12/2017 FINDINGS: There is chronic mild elevation of right hemidiaphragm. The lungs demonstrate mild atelecta sis. A calcified right lung nodule is consistent with old granulomatous disease. There is a 3 mm nodu le in right lower lobe, likely benign. No pleural effusion. The thyroid is enlarged. Bilateral breast implants are noted. 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 There is no pulmonar y embolus. There is a gallstone in the gallbladder, which is normal in size. There is cortical thinni ng of the kidneys. There is mild aortic atherosclerosis. There is thoracic dextroscoliosis and severe spondylosis. IMPRESSION: 1. No pulmonary embolus. 2. Cholelithiasis. No evidence of acute cholecystitis. 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
--- NOTE | 2022-10-07 11:41 | ECG_ITS ---
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
[2022-10-07 12:12] LABS: Basophils Absolute Auto 0.1 K/mm3 (0.0-0.1); Basophils Percent Auto 0.9 % (0.2-1.2); Eosinophils Absolute Auto 0.3 K/mm3 (0-0.3); Eosinophils Percent Auto 2.3 % (0-4.4); Hematocrit 44.2 % (37.0-47.0); Hemoglobin 15.2 g/dL (12.0-15.0); Immature Granulocyte Absolute 0.03 K/mm3 (0.00-0.031); Immature Granulocyte Percent A 0.2 % (0-0.5); Lymphocytes Absolute Auto 2.06 K/mm3 (0.9-3.2); Mean Corpuscular HGB Conc 34.4 g/dl (32-36); Mean Corpuscular Hemoglobin 29.3 pg (26-34); Mean Corpuscular Volume 85.2 fl (80-100); Mean Platelet Volume 10.6 fl (7.4-10.4); Monocytes Absolute Auto 0.8 K/mm3 (0.1-0.6); Monocytes Percent Auto 6.3 % (2.6-8.5); Neutrophils Absolute Auto 8.9 K/mm3 (1.3-6.7); Neutrophils Percent Auto 73.3 % (45.5-73.1); Platelet Count Result 332 k/mm3 (150-375); Red Blood Count 5.19 M/mm3 (4.2-5.4); Red Cell Distribution Width 13.6 % (11.5-14.5); White Blood Count 12.1 K/mm3 (4.5-10.0)
[2022-10-07 12:22] LABS: Magnesium 1.7 mg/dL (1.6-2.3)
[2022-10-07 12:31] LABS: NT Pro B Type Natriuretic Pept 46 pg/mL (19.9-100)
[2022-10-07 12:32] LABS: D Dimer 0.49 ug/mL (<0.48)
[2022-10-07] MEDS: IPRATROPIUM BR 0.02% INH SOLN 0.5 MG/2.5 ML VIAL 1 MG INHALATION (13:12)
[2022-10-07] MEDS: ALBUTEROL SULFATE NEB 2.5 MG/3 ML INH 15 MG INHALATION (13:12)
--- NOTE | 2022-10-07 14:01 | ED.SOB ---
HPI - SOB/Dyspnea General Chief Complaint: Shortness of Breath/Dyspnea Stated Complaint: cough since july Time Seen by Provider: 10/07/22 11:41 History of Present Illness HPI Narrative: Patient states that for months now she has been having cough that has been persistent with some shortness of breath, she has seen her doctor for this and been placed on antibiotics but states that her symptoms have not improved, she was told that she had a chest x-ray showing some fluid on her lungs. And so she came here. Related Data Home Medications Medication Instructions Recorded Confirmed amlodipine 10 mg tablet 10 mg PO DAILY 10/02/21 10/21/21 multivitamin 1 tablet PO DAILY 10/02/21 10/21/21 omega 4-wdy-frr-fish oil 1,000 mg 1 cap PO DAILY 10/02/21 10/21/21 (120 mg-180 mg) capsule (Fish Oil) benzonatate 100 mg capsule 100 mg PO TID PRN Cough 10/07/22 Allergies Allergy/AdvReac Type Severity Reaction Status Date / Time Sulfa (Sulfonamide Allergy Intermediate Rash Verified 10/07/22 11:57 Antibiotics) Review of Systems Review of Systems: CONST: No fever. HEENT: No sore throat C/V: No chest pain RESP: cough and shortness of breath GI: No abdominal pain : No dysuria. M/S: No joint pain. SKIN: No rash. NEURO: [No headache or focal numbness or weakness] PSYCH: [No depression] [facility] Past Medical History Medical History Hypertension Surgical History Surgical History H/O breast reconstruction H/O: hysterectomy History of mastectomy right breast Family History Family History Mother Cerebrovascular accident Sibling Breast cancer Other Diabetes mellitus Social History Social History Smoking status: Never smoker Tobacco type: cigarettes Alcohol intake: never Substance use: never Substance use type: does not use Gender identity (if verbalized by the patient): Female Spiritual care concerns: No Exam Narrative: EXAMINATION OF ORGAN SYSTEMS/BODY AREAS: Constitutional: Vital signs per nursing GENERAL:[No acute distress, non-toxic appearing.] HEAD: Normal with no signs of head trauma. EYES: EOMI, conjunctiva normal ENT: Hearing grossly intact LUNGS: Somewhat tachypneic, clear lungs bilaterally HEART: [Regular rate and rhythm] ABD: [Soft], [nontender to palpation] EXT: Normal range of motion SKIN: [No rashes or lesions.] NEURO: [Alert and oriented x 3. No gross focal sensory or strength deficits.] PSYCH: Somewhat anxious affect Course Vital Signs Vital signs: Vital Signs Temperature 97.6 F 10/07/22 11:31 Pulse Rate 120 H 10/07/22 11:31 Respiratory Rate 16 10/07/22 11:31 Blood Pressure 137/108 H 10/07/22 11:31 Pulse Oximetry 99 10/07/22 11:31 Oxygen Delivery Room Air 10/07/22 11:31 Temperature 97.6 F 10/07/22 11:31 Pulse Rate 125 H 10/07/22 15:35 Respiratory Rate 20 10/07/22 15:35 Blood Pressure 129/86 10/07/22 15:35 Pulse Oximetry 99 10/07/22 15:35 Oxygen Delivery Room Air 10/07/22 11:31 MDM - SOB/Dyspnea MDM Narrative Medical decision making narrative: Patient presenting with cough and trouble breathing for months, she had a recent chest x-ray that supposedly showed fluid on the lungs, vital signs notable for initial tachycardia that resolved. She is well-appearing on exam though does appear somewhat tachypneic and is coughing. I did review the chest x-ray done several days ago and on interpretation there does appear to be some streaky atelectasis but no obvious signs of pneumonia, and no signs of pleural effusion. Given her symptoms and tachycardia I will rule out PE, electrolyte abnormality, ACS. I discussed with the patient with shared decision making we will try a breathing treatment. CT PE shows mild atelectasis without any PE or
[2022-10-07 14:17] LABS: Anion Gap 9 mmol/L (8-16); Blood Urea Nitrogen 17 mg/dL (7-17); Calcium 9.7 mg/dL (8.4-10.2); Carbon Dioxide 25 mmol/L (22-30); Chloride 99 mmol/L (98-107); Estimated CRCL calculation 32 ml/min; Estimated Glomerular Filt Rate 43; Glucose 245 mg/dL (65-110); Sodium 133 mmol/L (137-145)
== END 2022-10-07 15:35 | disposition home or self-care (01) ==
PROVIDERS: Emergency Provider Emergency Medicine; PCP Internal Medicine
DX: R05.3 Chronic cough (principal); I10 Essential (primary) hypertension
CPT/HCPCS: 36415; 71275; 80048; 83735; 83880; 85025; 85380; 93005; 94640; 99284; Q9967

== ENCOUNTER 2022-12-30 08:19 | Outpatient (CLI) | payer MEDICARE, SELFPAY ==
[2022-12-30 09:18] LABS: Alanine Aminotransferase 23 U/L (6-35); Albumin Level 4.6 g/dL (3.5-5.1); Alkaline Phosphatase 98 U/L (38-126); Anion Gap 9 mmol/L (8-16); Aspartate Amino Transferase 29 U/L (14-36); Bilirubin,Total 0.6 mg/dL (0.2-1.3); Blood Urea Nitrogen 19 mg/dL (7-17); Calcium 9.4 mg/dL (8.4-10.2); Carbon Dioxide 29 mmol/L (22-30); Chloride 102 mmol/L (98-107); Estimated Glomerular Filt Rate 48; Glucose 182 mg/dL (65-110); Sodium 140 mmol/L (137-145)
[2022-12-30 09:53] LABS: Hemoglobin A1C 6.9 % (<5.7)
== END 2022-12-30 08:20 | disposition home or self-care (01) ==
PROVIDERS: PCP Internal Medicine; Visit Provider Internal Medicine
DX: E11.9 Type 2 diabetes mellitus without complications (principal); N18.2 Chronic kidney disease, stage 2 (mild)
CPT/HCPCS: 36415; 80053; 83036

== ENCOUNTER 2023-04-08 06:48 | Outpatient (CLI) | payer MEDICARE, SELFPAY ==
[2023-04-08 07:28] LABS: Alanine Aminotransferase 29 U/L (6-35); Albumin Level 4.6 g/dL (3.5-5.1); Alkaline Phosphatase 100 U/L (38-126); Anion Gap 7 mmol/L (8-16); Aspartate Amino Transferase 33 U/L (14-36); Bilirubin,Total 0.6 mg/dL (0.2-1.3); Blood Urea Nitrogen 26 mg/dL (7-17); Calcium 9.7 mg/dL (8.4-10.2); Carbon Dioxide 30 mmol/L (22-30); Chloride 104 mmol/L (98-107); Cholesterol 201 mg/dL (0-200); Estimated Glomerular Filt Rate 48; Glucose 154 mg/dL (65-110); HDL Direct 51 mg/dL; Potassium 4.2 mmol/L (3.4-5.0); Sodium 141 mmol/L (137-145); Triglycerides 84 mg/dL (<150)
[2023-04-08 07:39] LABS: Hematocrit 52.2 % (37.0-47.0); Hemoglobin 16.8 g/dL (12.0-15.0); Mean Corpuscular HGB Conc 32.2 g/dl (32-36); Mean Corpuscular Hemoglobin 28.1 pg (26-34); Mean Corpuscular Volume 87.4 fl (80-100); Mean Platelet Volume 10.3 fl (7.4-10.4); Platelet Count Result 322 k/mm3 (150-375); Red Blood Count 5.97 M/mm3 (4.2-5.4); Red Cell Distribution Width 14.5 % (11.5-14.5); White Blood Count 7.8 K/mm3 (4.5-10.0)
[2023-04-08 07:43] LABS: LDL Cholesterol Direct 117 mg/dL
[2023-04-08 07:51] LABS: Microalbumin Urine Random 11.5 mg/L (0-16.7)
[2023-04-08 08:03] LABS: Creatinine Urine 49.7 mg/dL; MALB Creatinine Ratio 23.1 mg/g (0-30)
== END 2023-04-08 06:49 | disposition home or self-care (01) ==
PROVIDERS: PCP Internal Medicine; Visit Provider Internal Medicine
DX: E11.9 Type 2 diabetes mellitus without complications (principal); I12.9 Hypertensive chronic kidney disease with stage 1 through stage 4 chronic kidney disease, or unspecified chronic kidney disease; N18.32 Chronic kidney disease, stage 3b
CPT/HCPCS: 36415; 80053; 80061; 82043; 82274; 83036; 84443; 85027

== ENCOUNTER 2023-04-14 09:00 | Outpatient (NON) | payer MEDICARE, SELFPAY ==
[2023-04-14 09:39] LABS: IFOB Positive Control Positive; Immunochemical Fecal Occult Bl Positive (N)
== END 2023-04-14 09:01 | disposition home or self-care (01) ==
LOC: ANHLAB 09:17
PROVIDERS: PCP Internal Medicine; Visit Provider Internal Medicine
DX: I12.9 Hypertensive chronic kidney disease with stage 1 through stage 4 chronic kidney disease, or unspecified chronic kidney disease (principal); N18.2 Chronic kidney disease, stage 2 (mild); E11.22 Type 2 diabetes mellitus with diabetic chronic kidney disease
CPT/HCPCS: 82274

== ENCOUNTER 2023-10-01 11:26 | Outpatient (CLI) | payer MEDICARE, SELFPAY ==
--- NOTE | ~2023-10-01 | XR_ITS ---
XR foot LT min 3V DATE: 10/01/2023 11:57 INDICATION: Dorsal foot pain for 5 days. No injury. TECHNIQUE: 4 views COMPARISON: None FINDINGS: Plantar calcaneal enthesopathy without associated erosive change or periostitis. No fracture or dislocation, periosteal reaction or bone destruction. IMPRESSION: Plantar calcaneal enthesopathy Reviewed, dictated and finalized at location L. OLL ASSOCIATE
[2023-10-01 12:14] LABS: Basophils Absolute Auto 0.14 K/mm3 (0.00-0.10); Basophils Percent Auto 1.2 % (0.0-1.0); Eosinophils Absolute Auto 0.22 K/mm3 (0.02-0.50); Eosinophils Percent Auto 1.9 % (1.0-6.0); Hematocrit 49.5 % (35.0-42.0); Hemoglobin 16.1 g/dL (11.7-13.8); Immature Granulocyte Absolute 0.03 K/mm3 (0.00-0.00); Immature Granulocyte Percent A 0.3 % (0.0-0.0); Lymphocytes Absolute Auto 1.84 K/mm3 (1.10-4.50); Lymphocytes Percent Auto 16.2 % (18.0-42.0); Mean Corpuscular HGB Conc 32.5 g/dL (32.0-36.0); Mean Platelet Volume 10.4 fl (9.2-11.8); Monocytes Absolute Auto 0.72 K/mm3 (0.10-0.90); Monocytes Percent Auto 6.3 % (2.0-11.0); Neutrophils Absolute Auto 8.4 K/mm3 (1.7-7.2); Neutrophils Percent Auto 74.1 % (50.0-70.0); Platelet Count Result 360 K/mm3 (150-420); Red Blood Count 5.56 M/mm3 (4.20-5.40); Red Cell Distribution Width 13.4 % (11.6-14.4); White Blood Count 11.3 K/mm3 (4.8-10.8)
[2023-10-01 12:29] LABS: D Dimer 0.28 mg/L (0.19-0.50)
[2023-10-01 13:36] LABS: Alanine Aminotransferase 29 U/L (14-59); Alkaline Phosphatase 107 U/L (46-116); Anion Gap 11 mmol/L (8-16); Aspartate Amino Transferase 24 U/L (15-37); Bilirubin,Total 0.5 mg/dL (0.00-1.00); Blood Urea Nitrogen 26 mg/dL (7-18); CRP 1.1 mg/dL (0.0-0.9); Calcium 9.5 mg/dL (8.5-10.1); Carbon Dioxide 27 mmol/L (21-32); Chloride 103 mmol/L (98-108); Estimated Glomerular Filt Rate 41; Glucose 114 mg/dL (70-99); Osmolality Calculated 297 mOsm/kg (285-295); Potassium 4.4 mmol/L (3.5-5.1); Sodium 141 mmol/L (136-145); Total Protein 7.6 g/dL (6.4-8.2); Uric Acid 4.7 mg/dL (2.6-6.0)
[2023-10-01 13:50] LABS: Hemoglobin A1C 6.8 % (<5.7)
== END 2023-10-01 11:27 | disposition home or self-care (01) ==
LOC: CHSLAB 11:28
PROVIDERS: PCP Internal Medicine; Visit Provider Internal Medicine
DX: E11.9 Type 2 diabetes mellitus without complications (principal); M79.672 Pain in left foot; M77.32 Calcaneal spur, left foot
CPT/HCPCS: 36415; 73630; 80053; 83036; 84550; 85025; 85380; 86140

== ENCOUNTER 2024-06-09 08:47 | Emergency (ER) | payer MEDICARE, SELFPAY ==
--- NOTE | ~2024-06-09 | US_ITS ---
EXAMINATION: US abdomen complete DATE: 06/09/2024 14:09 INDICATION: Mid to upper abdominal pain TECHNIQUE: Multiple grayscale and Doppler ultrasound images of the abdomen were obtained. COMPARISON: CT dated 06/09/2024 FINDINGS: The pancreatic head and body are normal in appearance. The pancreatic tail is not visualized. Abdomi nal aorta is normal in caliber measuring 1.6 cm AP in the proximal abdominal aorta decreasing to 1.2 cm the mid aorta. The distal aorta is obscured by shadowing bowel gas. The visualized proximal to mid inferior vena cava is normal. Liver has normal echogenicity and contour, with a smooth surface. No l iver lesion identified. No intrahepatic biliary duct dilation suspected. Portal venous flow was seen in the hepatopetal, normal direction and has normal Doppler waveform. 2.4 cm echogenic and shadowing gallstone at the neck of the otherwise normal-appearing gallbladder with no wall thickening. The comm on bile duct measures 5-6 mm, which is normal. Sonographic Wilde sign was reported as negative by [facility] quality control inspector heading. Small echogenic calcified granuloma in the otherwise normal-appearing spleen with norm al splenic length of 12.7 cm. There is normal renal contour and echogenicity bilaterally. The right k idney measures 10.5 x 4.4 x 4.3 cm and the left 12.4 x 4.5 x 2.6 cm. There are a few subcentimeter an echoic cysts in the right kidney. There is no hydronephrosis. IMPRESSION: 1. Cholelithiasis without biliary ductal dilation or findings of acute cholecystitis. Reviewed, dictated and finalized at location B. IMPRESSION: 1. Cholelithiasis without biliary ductal dilation or findings of acute cholecys titis.
--- NOTE | ~2024-06-09 | CT_ITS ---
EXAMINATION: CT abdomen pelvis w con DATE: 06/09/2024 10:05 INDICATION: Abdominal pain. Leukocytosis. TECHNIQUE: Computed tomography (CT) of the abdomen and pelvis was performed with 100 mL Omnipaque-350 intravenous contrast. Automated exposure control and iterative reconstruction technique were employe d. The dose-length product was 583.09 mGy-cm. COMPARISON: CT dated 10/10/2021 FINDINGS: Calcified right lower lobe nodule along with a couple small hepatic and splenic calcifications consis tent with old granulomatous disease. Heart size is normal. No pericardial or pleural effusion. Bilate ral breast implants. Small sliding-type hiatal hernia. Calcified gallstone in the otherwise normal ga llbladder with no wall thickening or pericholecystic inflammatory stranding to suggest acute cholecys titis. Unchanged 4 mm hyperdense likely splenic cyst or hemangioma. Pancreas and bilateral adrenal gl ands are normal. Mild bilateral renal cortical atrophy with multiple bilateral renal cysts measuring up to 1.2 cm maximal diameter. There is moderate colonic diverticulosis with a sigmoid predominance a nd without adjacent inflammatory change to suggest diverticulitis. There are also a few scattered duo denal diverticula without surrounding inflammatory stranding, the largest in the central abdomen hosea uring 4.1 cm in maximal diameter and 2.0 cm diverticulum at the third portion of the duodenum. No bow el obstruction. Normal appendix. Small fat-containing umbilical hernia. The uterus the left ovary are n't not identified and have likely been surgically resected. Bladder and right ovary are unremarkable . No free intraperitoneal gas or fluid. No pathologically enlarged abdominal or pelvic lymphadenopath y. Severe thoracic spondylosis. Mild lumbar spondylosis with combined instrumented anterior and poste rior L4-5 spinal fusion. IMPRESSION: 1. No acute intra-abdominal/pelvic process. 2. Cholelithiasis. 3. Large and small bowel diverticulosis without evident diverticulitis. 4. Small sliding-type hiatal hernia. Reviewed, dictated and finalized at location B.
[2024-06-09 08:58] VITALS: BP 153/84; PULSE 103; RESP 19; TEMP 36.1; O2SAT 95
[2024-06-09 09:22] LABS: Add Urine Microscopic? NO; Appearance Urine Clear (Clear); Basophils Absolute Auto 0.2 K/mm3 (0.0-0.1); Basophils Percent Auto 0.9 % (0.2-1.2); Bilirubin Urine Negative (Negative); Blood Urine Negative (Negative); Color Urine Yellow (Yellow); Eosinophils Absolute Auto 0.2 K/mm3 (0-0.3); Eosinophils Percent Auto 0.9 % (0-4.4); Glucose Urine UA 3+ mg/dL (Negative); Hematocrit 52.4 % (37.0-47.0); Hemoglobin 17.4 g/dL (12.0-15.0); Immature Granulocyte Absolute 0.06 K/mm3 (0.00-0.031); Immature Granulocyte Percent A 0.4 % (0-0.5); Ketones Urine Negative (Negative); Leukocyte Esterase Ur Negative LEU/UL (Negative); Lymphocytes Absolute Auto 1.52 K/mm3 (0.9-3.2); Lymphocytes Percent Auto 8.9 % (18.3-44.2); Mean Corpuscular HGB Conc 33.2 g/dl (32-36); Mean Corpuscular Hemoglobin 29.3 pg (26-34); Mean Corpuscular Volume 88.2 fl (80-100); Mean Platelet Volume 10.2 fl (7.4-10.4); Monocytes Absolute Auto 0.9 K/mm3 (0.1-0.6); Monocytes Percent Auto 5.5 % (2.6-8.5); Neutrophils Absolute Auto 14.2 K/mm3 (1.3-6.7); Neutrophils Percent Auto 83.4 % (45.5-73.1); Nitrate Urine Negative (Negative); Platelet Count Result 321 k/mm3 (150-375); Protein Urine Negative (Negative); Red Blood Count 5.94 M/mm3 (4.2-5.4); Red Cell Distribution Width 13.1 % (11.5-14.5); Specific Grav Ur 1.022 (1.001-1.035); Urobilinogen Urine 0.2 mg/dL (<2.0); White Blood Count 17.1 K/mm3 (4.5-10.0); pH Urine 5.5 (5.0-9.0)
[2024-06-09 09:35] LABS: Alanine Aminotransferase 26 U/L (6-35); Alkaline Phosphatase 93 U/L (38-126); Anion Gap 13 mmol/L (4-12); Aspartate Amino Transferase 39 U/L (14-36); Bilirubin,Total 0.8 mg/dL (0.2-1.3); Blood Urea Nitrogen 19 mg/dL (7-17); Calcium 9.7 mg/dL (8.4-10.2); Carbon Dioxide 25 mmol/L (22-30); Chloride 98 mmol/L (98-107); Estimated CRCL calculation 40 ml/min; Estimated Glomerular Filt Rate 60; Glucose 162 mg/dL (65-110); Lipase 164 U/L (23-300); Potassium 3.9 mmol/L (3.4-5.0); Sodium 136 mmol/L (137-145)
--- NOTE | 2024-06-09 09:50 | ECG_ITS ---
Test Date: 2024-06-09 10:10:48 Measurements Intervals [place] Rate: 89 P: 27 MN: 174 QRS: -7 QRSD: 97 T: 34 QT: 375 QTc: 458 Interpretive Statements SINUS RHYTHM BASELINE ARTIFACT- I, II, III, AVR, AVL, AVF, V4-V6 NORMAL ECG No previous ECG available for comparison Electronically Signed On 06-09-2024 10:39:09 CDT by Adriano Jeffries D.O.
[2024-06-09 10:24] LABS: Partial Thromboplastin Time 26.4 Seconds (22.3-36.8); Prothrombin Time 13.4 Seconds (11.1-14.7)
[2024-06-09] MEDS: KETOROLAC 30 MG/ML VIAL (*BKC) IV PUSH (10:27)
[2024-06-09] MEDS: PANTOPRAZOLE SODIUM IV 40 MG VIAL IV PUSH (10:27)
[2024-06-09 10:28] LABS: CRP 1.2 mg/dL (<1.0)
[2024-06-09] MEDS: FAMOTIDINE 20 MG/2 ML VIAL IV PUSH (10:28)
[2024-06-09] MEDS: SODIUM CHLORIDE 0.9% IV 1,000 ML 999 ML IV CONT (10:28)
[2024-06-09 10:30] LABS: Troponin I < 0.012 ng/mL (0.000-0.034)
[2024-06-09 11:00] LABS: Lactic Acid Reflex 1.4 mmol/L (0.7-2.0)
[2024-06-09 11:52] VITALS: BP 140/83; PULSE 93; RESP 18; O2SAT 95
--- NOTE | 2024-06-09 12:20 | ED.ABDPAIN ---
HPI - Abdominal Pain General Chief Complaint: Abdominal Pain Stated Complaint: abdominal pain Time Seen by Provider: 06/09/24 09:00 Source: patient and family Mode of arrival: ambulatory Limitations: no limitations History of Present Illness HPI narrative: Patient is an 79-year-old female who presents to the ER with upper abdominal pain. She reports that she recently lost a son to kidney cancer and has noticed the abdominal pain worsening since that time. Patient reports the abdominal pain radiates to her back. She has no history gastric reflux, pancreatitis, or cholecystitis. Her only medical history is high blood pressure and diabetes. Patient reports her blood glucose has been higher lately. She denies any chest pain, shortness a breath or one-sided weakness/tingling/numbness. Related Data Home Medications Medication Instructions Recorded Confirmed amlodipine 10 mg tablet 10 mg PO DAILY 10/02/21 10/21/21 multivitamin 1 tablet PO DAILY 10/02/21 10/21/21 omega 4-fmw-pwb-fish oil 1,000 mg 1 cap PO DAILY 10/02/21 10/21/21 (120 mg-180 mg) capsule (Fish Oil) benzonatate 100 mg capsule 100 mg PO TID PRN Cough 10/07/22 Allergies Allergy/AdvReac Type Severity Reaction Status Date / Time Sulfa (Sulfonamide Allergy Intermediate Rash Verified 06/09/24 08:57 Antibiotics) Review of Systems Review of Systems: All systems reviewed & are unremarkable except as noted in HPI and below PMFSH Past Medical History Medical History Hypertension Surgical History Surgical History H/O breast reconstruction H/O: hysterectomy History of mastectomy right breast Family History Family History Mother Cerebrovascular accident Sibling Breast cancer Other Diabetes mellitus Social History Social History Smoking status: Never smoker Tobacco type: cigarettes Alcohol intake: never Substance use: never Substance use type: does not use Living arrangements: with family Occupation/Education: retired Gender identity (if verbalized by the patient): Female Spiritual care concerns: No Exam Narrative: GENERAL: Well appearing, well-nourished, non-toxic, in no acute distress. HEAD: Normocephalic, atraumatic. NECK: Supple. No adenopathy, no masses. RESPIRATORY: Airway patent, respirations nonlabored. Clear to auscultation bilaterally, no rales, rhonchi, wheezing. CARDIOVASCULAR: Regular rate and rhythm without murmurs, rubs, or gallops. Peripheral pulses 2+ and equal bilaterally. No CVA tenderness. ABDOMINAL: Soft, tender upon palpation in upper quadrants, nondistended, no hepatosplenomegaly. Normoactive BS. MUSCULOSKELETAL: Moves all extremities. Strength/ROM intact without gross deformities. SKIN: Warm, dry, normal color. No rashes. NEURO: A&O X3. Speech clear. Cranial nerves II-XII grossly intact. No ataxic movements. PSYCHIATRIC: Appropriate mood and affect. Normal interaction. Course Vital Signs Vital signs: Vital Signs Temperature 36.1 C L 06/09/24 08:58 Pulse Rate 103 H 06/09/24 08:58 Respiratory Rate 19 06/09/24 08:58 Blood Pressure 153/84 H 06/09/24 08:58 Pulse Oximetry 95 06/09/24 08:58 Oxygen Delivery Room Air 06/09/24 08:58 Temperature 36.1 C L 06/09/24 08:58 Pulse Rate 95 06/09/24 13:21 Respiratory Rate 06/09/24 13:21 Blood Pressure 158/80 H 06/09/24 13:21 Pulse Oximetry 98 06/09/24 13:21 Oxygen Delivery Room Air 06/09/24 08:58 MDM - Abdominal Pain MDM Narrative Medical decision making narrative: Patient is an 79-year-old female who presents to the ER with upper abdominal pain. She reports that she recently lost a son to kidney cancer and has noticed the abdominal pain worsening since that
[2024-06-09 12:27] LABS: Magnesium 1.9 mg/dL (1.6-2.3)
[2024-06-09 12:45] LABS: Hemoglobin A1C 7.1 % (<5.7)
[2024-06-09] MEDS: BELLADONNA ALK/PHENOB ELIX 10 ML, MAG HYDROX/ALUMINUM HYD/SIMETH 30 ML, LIDOCAINE HCL 2... PO (12:48)
[2024-06-09 13:21] VITALS: BP 158/80; PULSE 95; RESP 19; O2SAT 98
[2024-06-09] MEDS: metroNIDAZOLE 500 MG/ISO 100ML 500 MG/100 ML BAG 100 MG IVPB (13:22)
[2024-06-09 13:44] LABS: Influenza A QL RT-PCR Negative (Negative); Influenza B QL RT-PCR Negative (Negative); RSV RNA, RT-PCR Negative (Negative); SARS-CoV-2 RNA PCR Negative (Negative)
[2024-06-09 16:04] VITALS: BP 142/74; PULSE 78; RESP 16; O2SAT 99
== END 2024-06-09 16:05 | disposition home or self-care (01) ==
PROVIDERS: Emergency Provider Registered Nurse; PCP Internal Medicine
DX: R10.10 Upper abdominal pain, unspecified (principal); Z20.822 Contact with and (suspected) exposure to COVID-19; I10 Essential (primary) hypertension; E11.9 Type 2 diabetes mellitus without complications; Z85.3 Personal history of malignant neoplasm of breast; Z90.710 Acquired absence of both cervix and uterus; Z90.11 Acquired absence of right breast and nipple; Z79.899 Other long term (current) drug therapy; K57.50 Diverticulosis of both small and large intestine without perforation or abscess without bleeding; K44.9 Diaphragmatic hernia without obstruction or gangrene; K80.20 Calculus of gallbladder without cholecystitis without obstruction
CPT/HCPCS: 36415; 74177; 76700; 80053; 81003; 82010; 83036; 83605; 83690; 83735; 84484; 85025; 85610; 85730; 86140; 87040; 87637; 93005; 96365; 96366; 96367; 96375; 99284; A9270; J0696; J1836; J1885; J2470; J7030; Q9967

== ENCOUNTER 2024-06-20 06:45 | Outpatient (CLI) | payer MEDICARE, SELFPAY ==
[2024-06-20 07:25] LABS: Hematocrit 51.7 % (37.0-47.0); Hemoglobin 16.9 g/dL (12.0-15.0); Mean Corpuscular HGB Conc 32.7 g/dl (32-36); Mean Corpuscular Hemoglobin 29.2 pg (26-34); Mean Corpuscular Volume 89.3 fl (80-100); Mean Platelet Volume 9.9 fl (7.4-10.4); Platelet Count Result 328 k/mm3 (150-375); Red Blood Count 5.79 M/mm3 (4.2-5.4); Red Cell Distribution Width 13.1 % (11.5-14.5); White Blood Count 9.2 K/mm3 (4.5-10.0)
[2024-06-20 07:32] LABS: Alanine Aminotransferase 21 U/L (6-35); Albumin Level 4.5 g/dL (3.5-5.1); Alkaline Phosphatase 87 U/L (38-126); Amylase 90 U/L (30-110); Anion Gap 8 mmol/L (4-12); Aspartate Amino Transferase 33 U/L (14-36); Bilirubin,Total 0.5 mg/dL (0.2-1.3); Blood Urea Nitrogen 22 mg/dL (7-17); Calcium 9.3 mg/dL (8.4-10.2); Carbon Dioxide 28 mmol/L (22-30); Chloride 103 mmol/L (98-107); Estimated Glomerular Filt Rate 48; Glucose 171 mg/dL (65-110); Lipase 212 U/L (23-300); Sodium 139 mmol/L (137-145)
== END 2024-06-20 06:46 | disposition home or self-care (01) ==
PROVIDERS: PCP Internal Medicine; Visit Provider Internal Medicine
DX: R10.9 Unspecified abdominal pain (principal)
CPT/HCPCS: 36415; 80053; 82150; 83690; 85027

== ENCOUNTER 2024-11-25 06:44 | Outpatient (CLI) | payer MEDICARE, SELFPAY ==
--- OUTSIDE RECORDS SUMMARY | 2024-11-25 06:49 | XMS_ITS | Clinical Summary ---
Author Organization [facility] Address [address] 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
--- OUTSIDE RECORDS SUMMARY | 2024-11-25 06:49 | XMS_ITS | Encounter Summary ---
Author Organization [facility] Address [address] [place] [address] Care Team Providers Care Physical Medicine Physician Name Role Phone Unavailable Primary Care Provider Unavailabl e Encounter Details Date Type Department Care Team (Late st Contact Info) Description 09/15/2008 Outpatient Historical 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
[2024-11-25 08:18] LABS: Hematocrit 52.4 % (37.0-47.0); Hemoglobin 17.1 g/dL (12.0-15.0); Mean Corpuscular HGB Conc 32.6 g/dl (32-36); Mean Corpuscular Hemoglobin 28.9 pg (26-34); Mean Corpuscular Volume 88.5 fl (80-100); Mean Platelet Volume 10.4 fl (7.4-10.4); Platelet Count Result 306 k/mm3 (150-375); Red Blood Count 5.92 M/mm3 (4.2-5.4); Red Cell Distribution Width 13.1 % (11.5-14.5); White Blood Count 8.7 K/mm3 (4.5-10.0)
[2024-11-25 08:22] LABS: Add Urine Microscopic? YES; Appearance Urine Clear (Clear); Bacteria Urine None Seen /hpf; Bilirubin Urine Negative (Negative); Blood Urine Negative (Negative); Color Urine Yellow (Yellow); Glucose Urine UA 3+ mg/dL (Negative); Ketones Urine Negative (Negative); Leukocyte Esterase Ur Trace LEU/UL (Negative); Nitrate Urine Negative (Negative); Non Pathogenic Casts 0-2; Protein Urine Negative (Negative); RBC Urine 0-2 /hpf (0-2); Specific Grav Ur 1.015 (1.001-1.035); Squamous Epithelial Cell Urine Occasional /hpf (Few); Urobilinogen Urine 0.2 mg/dL (<2.0); pH Urine 5.5 (5.0-9.0)
[2024-11-25 08:36] LABS: Alanine Aminotransferase 22 U/L (6-35); Albumin Level 4.8 g/dL (3.5-5.1); Alkaline Phosphatase 97 U/L (38-126); Anion Gap 11 mmol/L (4-12); Aspartate Amino Transferase 28 U/L (14-36); Bilirubin,Total 0.6 mg/dL (0.2-1.3); Blood Urea Nitrogen 20 mg/dL (7-17); Calcium 9.8 mg/dL (8.4-10.2); Carbon Dioxide 26 mmol/L (22-30); Chloride 103 mmol/L (98-107); Cholesterol 196 mg/dL (0-200); Estimated Glomerular Filt Rate 53; Glucose 169 mg/dL (65-110); HDL Direct 54 mg/dL; Potassium 3.9 mmol/L (3.4-5.0); Sodium 140 mmol/L (137-145); Triglycerides 83 mg/dL (<150)
[2024-11-25 08:48] LABS: LDL Cholesterol Direct 118 mg/dL
[2024-11-25 09:06] LABS: Hemoglobin A1C 7.3 % (<5.7)
[2024-11-25 09:56] LABS: Creatinine Urine 39.3 mg/dL
[2024-11-25 09:58] LABS: MALB Creatinine Ratio 27.5 mg/g (0-30); Microalbumin Urine Random 10.8 mg/L (0-16.7)
== END 2024-11-25 06:45 | disposition home or self-care (01) ==
PROVIDERS: PCP Internal Medicine; Visit Provider Internal Medicine
DX: I10 Essential (primary) hypertension (principal); E11.9 Type 2 diabetes mellitus without complications
CPT/HCPCS: 36415; 80053; 80061; 81001; 82043; 83036; 84443; 85027

== ENCOUNTER 2025-05-30 07:08 | Outpatient (CLI) | payer MEDICARE, SELFPAY ==
--- NOTE | 2025-05-30 | CONSULT_PTH ---
PATIENT: Debbie Jansen LOC: [facility] U#:[id number] AGE/SX: 80/F ROOM: RE05/30/[address]: Devon Doshi MD : [id number] BED: DIS: 05/30/2025 SPEC #: [id number] RECD: 05/30/25 08:36 STATUS: NIKHIL REQ #: [id number] ERUM: 05/30/25 00:[address]: Devon Doshi DEPT: [facility] Consult RECD BY: Crystal Nunes MLT, ([facility]) Tissues: A - Peripheral Blood Procedures: Flow Cytometry
[2025-05-30 08:15] LABS: Alanine Aminotransferase 32 U/L (6-35); Albumin Level 4.6 g/dL (3.5-5.1); Alkaline Phosphatase 96 U/L (38-126); Anion Gap 10 mmol/L (4-12); Aspartate Amino Transferase 40 U/L (14-36); Bilirubin,Total 0.6 mg/dL (0.2-1.3); Blood Urea Nitrogen 17 mg/dL (7-17); Calcium 9.9 mg/dL (8.4-10.2); Carbon Dioxide 28 mmol/L (22-30); Chloride 102 mmol/L (98-107); Estimated Glomerular Filt Rate 57; Glucose 204 mg/dL (65-110); Potassium 4.7 mmol/L (3.4-5.0); Sodium 140 mmol/L (137-145); Total Protein 7.9 g/dL (6.3-8.2)
[2025-05-30 08:20] LABS: Hematocrit 52.0 % (37.0-47.0); Hemoglobin 16.7 g/dL (12.0-15.0); Immature Granulocyte Percent A 0.2 % (0-0.5); Lymphocytes Absolute Auto 1.45 K/mm3 (0.9-3.2); Mean Corpuscular HGB Conc 32.1 g/dl (32-36); Mean Corpuscular Hemoglobin 28.8 pg (26-34); Mean Corpuscular Volume 89.7 fl (80-100); Nucleated Red Blood Cells Absolute Auto 0.000 K/mm3 (0.0-0.012); Nucleated Red Blood Cells Perc 0.0 % (0.0-0.2); Platelet Count Result 314 k/mm3 (150-375); Red Blood Count 5.80 M/mm3 (4.2-5.4); White Blood Count 8.5 K/mm3 (4.5-10.0)
[2025-05-30 10:01] LABS: Hemoglobin A1C 7.2 % (<5.7)
== END 2025-05-30 07:09 | disposition home or self-care (01) ==
PROVIDERS: PCP Internal Medicine; Visit Provider Internal Medicine
DX: D75.1 Secondary polycythemia (principal); E11.9 Type 2 diabetes mellitus without complications; I10 Essential (primary) hypertension
CPT/HCPCS: 36415; 80053; 82668; 83036; 85025; 85027; 88184

== ENCOUNTER 2025-07-14 10:27 | Outpatient (CLI) | payer MEDICARE, SELFPAY ==
--- NOTE | ~2025-07-14 | US_ITS ---
EXAMINATION: US carotid duplex BI DATE: 07/14/2025 11:45 INDICATION: Carotid stenosis TECHNIQUE: Grayscale, color Doppler, and pulsed Doppler images of the cervical carotid arteries were obtained. The degree of vessel stenosis is placed in one of the following categories: normal, <50%, 50-69%, >=70% but less than near- occlusion, near-occlusion, or total occlusion. Note that percent stenosis relative to normal distal artery lumen diameter is indirectly measured from velocity measurements as described by Kirk, et al. Radiology 2003; 229:340-346. Notes: Normal: Peak systolic velocity <125 centimeters/sec and no plaque <50%. Peak systolic velocity <125 (EDV <40; ICA/CCA PSV ratio <2.0; used these factors only a tandem lesions or low cardiac output or contralateral disease) 50-69 %: PSV 125-230 (EDV 40-100; ratio 2-4) >= 70% but less than near occlusion: PSV greater than 230 (EDV > 100; ratio> 4.0) Near Occlusion: PSV that is variable; markedly narrowed lumen Occlusion: Absent flow on color/spectral Doppler and no lumen on du scale. COMPARISON: None. FINDINGS: RIGHT: The right common carotid artery (CCA) peak systolic velocity (PSV) is 89 cm/s. The right internal carotid artery (ICA) PSV is 80 cm/s. The right ICA end- diastolic velocity (EDV) is 20 cm/s. The right ICA/CCA PSV ratio is 0.9. The external carotid artery (ECA) PSV is 200 cm/s. There is antegrade flow in the right vertebral artery. LEFT: The left CCA PSV is 94 cm/s. The left ICA PSV is 99 cm/s. The left ICA EDV is 20 cm/s. The left ICA/CCA PSV ratio is 1.1. The ECA PSV is 172 cm/s. There is antegrade flow in the left vertebral artery. IMPRESSION: 1. Less than 50% stenosis in the right internal carotid artery by sonographic criteria. 2. Less than 50% stenosis in the left internal carotid artery by sonographic criteria. Reviewed, dictated and finalized at location O. IMPRESSION: 1. Less than 50% stenosis in the right internal carotid artery by sonographic sydnie murphy. 2. Less than 50% stenosis in the left internal carotid artery by sonographic willard bailey.
== END 2025-07-14 10:28 | disposition home or self-care (01) ==
PROVIDERS: PCP Internal Medicine; Visit Provider Internal Medicine
DX: I65.23 Occlusion and stenosis of bilateral carotid arteries (principal)
CPT/HCPCS: 93880